=== PATIENT | male | born 1980 | race African-American/Black ===

== ENCOUNTER 2021-01-11 14:49 | Outpatient (CLI) | payer BC | END 2021-01-11 23:59 | disposition home or self-care (01) | LOC: CFH 14:49 | PROVIDERS: ATTEND Nurse Practitioner | DX: M25.462 Effusion, left knee (principal); M25.461 Effusion, right knee ==

== ENCOUNTER 2021-02-13 18:03 | Emergency (ER) | payer BC ==
[~2021-02-13] VITALS: Ht 172.7 cm; Wt 80.5 kg
[2021-02-13 18:52] LABS: LYMPHOCYTES % (AUTO) 25 % (22-44); MEAN CORPUSCULAR HEMOGLOBIN 29.4 pg (27.5-34.5); MEAN CORPUSCULAR HGB CONC 33.3 g/dL (33.2-36.2); MEAN PLATELET VOLUME 7.4 fL (7.4-10.4); NEUTROPHILS % (AUTO) 63 % (42-75); PLATELET COUNT 333 x10^3/uL (130-400); RED BLOOD COUNT 4.26 x10^6/uL (4.38-5.82); RED CELL DISTRIBUTION WIDTH 14.5 % (9.4-14.8)
[2021-02-13 18:53] LABS: BASOPHILS % (AUTO) 1 % (0-1); EOSINOPHILS % (AUTO) 1 % (1-7); MD NO; MONOCYTES % (AUTO) 10 % (2-9)
[2021-02-13 19:03] LABS: ANION GAP 7 mmol/L (5-15); CALCIUM 9.2 mg/dL (8.5-10.1); CHLORIDE 102 mmol/L (98-107)
[2021-02-13 19:11] LABS: ALANINE AMINOTRANSFERASE 93 U/L (12-78); ALKALINE PHOSPHATASE 124 U/L (45-117); BILIRUBIN,TOTAL 0.8 mg/dL (0.2-1.0); CREATININE 0.85 mg/dL (0.7-1.3); TOTAL PROTEIN 8.4 g/dL (6.4-8.2)
[2021-02-13 21:03] VITALS: BP 160/97
== END 2021-02-13 21:55 | disposition home or self-care (01) ==
LOC: ED 21:08
DX: R60.0 Localized edema (principal); K70.10 Alcoholic hepatitis without ascites; I10 Essential (primary) hypertension; E11.9 Type 2 diabetes mellitus without complications
CPT/HCPCS: 36415; 80053; 83880; 85025; 93970; 99284

== ENCOUNTER 2021-07-25 18:00 | Emergency (ER) | payer MEDICAID ==
[~2021-07-25] VITALS: Ht 172.7 cm; Wt 76.7 kg
[2021-07-25 18:27] VITALS: BP 126/78
--- NOTE | 2021-07-25 22:30 | NUR ---
pt to room from lobby
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
== END 2021-07-25 23:56 | disposition home or self-care (01) ==
LOC: ED 23:09
DX: F20.0 Paranoid schizophrenia (principal); M54.5 Low back pain; I10 Essential (primary) hypertension; E11.9 Type 2 diabetes mellitus without complications
CPT/HCPCS: 99281